=== PATIENT | female | born 1995 | race Caucasian/White ===

== ENCOUNTER 2017-05-20 03:01 | Emergency (ER) | payer OTHER ==
[~2017-05-20] VITALS: Ht 167.6 cm; Wt 125.0 kg
[~2017-05-20 03:01] MED LIST: COLACE100 MG PO; ERYTHROMYC1 APPLICAT BOTH EYES; FEOSOL325 MG PO; IBUPROFEN800 MG PO; LABETALOL HCL200 MG PO; LASIX20 MG PO; MULTI VITAMIN1 EACH PO; PATANOL OP100 DROP/5 BOTH EYES; ZYRTEC10 M2 PO
[2017-05-20] MEDS ORDERED: MEDROXYPRO150 MG/1 M IM (03:45)
[2017-05-20 04:44] VITALS: BP 143/93
== END 2017-05-20 04:56 | disposition home or self-care (01) ==
LOC: EME 03:01
DX: B34.9 Viral infection, unspecified (principal)
CPT/HCPCS: 87651 90; 99281; 99283